=== PATIENT | male | born 1985 | race Caucasian/White ===

== ENCOUNTER 2017-02-27 11:40 | Emergency (ER) | payer OTHER ==
[~2017-02-27] VITALS: Ht 180.3 cm; Wt 77.1 kg
--- NOTE | ~2017-02-27 | EKG ---
[address] [address] ELECTROCARDIOGRAM REPORT Name: EDGARD VERDIN [id number] Admission: 02/27/17 Attend Phys: Discharge: 02/27/17 Date of : 81 Report #: [id number] THIS REPORT FOR: //name// [facility] ED Test Date: 2017-02-27 Test Time: 11:41:33 Pat Name: EDGARD VERDIN Department: Room: Gender: M [employer]: DIGNA : 1985 Requested By: Elver Flores Order Number: [id number] MD: Aaron Sanchez Measurements Intervals [place] Rate: 90 P: 92 [place]: 151 QRS: 91 QRSD: 103 T: -28 QT: 322 QTc: 394 Interpretive Statements Sinus rhythm Consider right ventricular hypertrophy Borderline T abnormalities, inferior leads No previous ECG available for comparison Electronically Signed On 02-28-2017 8:27:38 CDT by Aaron Sanchez [email or web address] <ELECTRONICALLY SIGNED> By: Aaron Sanchez MD, [facility] 02/28/17 0827 1141 114 Aaron Sanchez MD, FACC /EPI
[2017-02-27 12:17] LABS: BASOPHILS 0.4 % (0.0-2.0); EOSINOPHILS 2.9 % (0.0-3.0); HEMATOCRIT 43.8 % (42.0-52.0); HEMOGLOBIN 14.6 gm/dL (14.0-18.0); LYMPHOCYTES 35.7 % (24.0-44.0); MCH 27.7 pg (26.0-34.0); MCHC 33.4 g/dL (28.0-37.0); MONOCYTES 8.3 % (1.0-8.0); PLATELET COUNT 168 thou/uL (150-400); POLYS 52.7 % (36.0-66.0); RBC 5.27 mil/uL (4.50-6.00); RDW 13.8 % (10.5-14.5); WBC 5.7 thou/uL (4.0-11.0)
[2017-02-27 12:18] LABS: MANUAL DIFF NO
[2017-02-27 12:26] LABS: ANION GAP 7 mmol/L (7-16); BUN 22 mg/dL (7-18); CALCIUM 8.8 mg/dL (8.5-10.1); CHLORIDE 105 mmol/L (98-107); CO2 29 mmol/L (21-32); CREATININE 1.1 mg/dL (0.7-1.3); GLUCOSE 108 mg/dL (74-106); POTASSIUM 3.8 mmol/L (3.5-5.1); SODIUM 141 mmol/L (136-145)
[2017-02-27 12:33] LABS: ALBUMIN 3.8 g/dL (3.4-5.0); ALKALINE PHOSPHATASE 101 U/L (46-116); SGOT 21 U/L (15-37); SGPT 25 U/L (30-65); TOTAL BILIRUBIN 0.5 mg/dL (<0.1-1.0); TOTAL PROTEIN 7.6 g/dL (6.4-8.2); TROPONIN-I < 0.04 ng/mL (<0.04-0.07)
[2017-02-27] MEDS ORDERED: NORCO 5-325 TA1 EACH PO (14:59)
[2017-02-27 15:20] VITALS: BP 122/80
== END 2017-02-27 16:55 ==
LOC: ER 11:40
PROVIDERS: Physician Assistant
DX: J93.83 Other pneumothorax (principal)